=== PATIENT | female | born 1965 | race Caucasian/White ===

== ENCOUNTER 2018-08-09 08:57 | Emergency (ER) | payer OTHER ==
[~2018-08-09] VITALS: Ht 165.1 cm; Wt 65.9 kg
[2018-08-09] MEDS ORDERED: KETOROLAC 30 MG/1 ML ONE (09:40)
[2018-08-09] MEDS ORDERED: KETOROLAC 30 MG/1 ML IM ONE (10:00)
[2018-08-09 10:36] VITALS: BP 128/68
== END 2018-08-09 10:38 | disposition home or self-care (01) ==
LOC: ED 09:30
DX: S46.911A Strain of unspecified muscle, fascia and tendon at shoulder and upper arm level, right arm, initial encounter (principal); S76.212A Strain of adductor muscle, fascia and tendon of left thigh, initial encounter; V53.5XXA Driver of pick-up truck or van injured in collision with car, pick-up truck or van in traffic accident, initial encounter; Y93.89 Activity, other specified; Y92.89 Other specified places as the place of occurrence of the external cause; Y99.8 Other external cause status
CPT/HCPCS: 73030; 73502; 96372; 99284; J1885